=== PATIENT | female | born 1945 | race Caucasian/White ===

== ENCOUNTER → 2016-11-01 | Outpatient (CLI) | payer MEDICARE, OTHER ==
--- NOTE | 2016-11-01 12:44 | RAD ---
Indication injury. Axial noncontrast images of the head were obtained and are compared to an exam 05/26/2015. The calvarium shows no acute finding. Postoperative changes of a right craniotomy are noted. The visualized paranasal sinuses appear normal. Chronic right subdural hematoma is noted. Cystic lesion at the base of the right frontal lobe is noted also unchanged. Small encephalomalacic area in the left parietal lobe, were there was a previous parenchymal hemorrhage, is additionally noted. No acute parenchymal finding is seen. There has not, overall, been a significant change in the appearance of the head compared to the prior study. IMPRESSION: Chronic changes. No acute finding. No significant change PQRS Compliance Statement: One or more of the following individualized dose reduction techniques were utilized for this examination: 1. Automated exposure control 2. Adjustment of the mA and/or kV according to patient size 3. Use of iterative reconstruction technique
== END | disposition home or self-care (01) ==
LOC: CT 11:52
PROVIDERS: ATTEND Family Medicine
DX: I62.00 Nontraumatic subdural hemorrhage, unspecified (principal); M25.531 Pain in right wrist; R07.82 Intercostal pain; Z91.81 History of falling
CPT/HCPCS: 70450

== ENCOUNTER → 2017-02-15 | Outpatient (CLI) | payer MEDICARE, OTHER ==
--- NOTE | 2017-02-15 16:56 | RAD ---
Left lower extremity deep venous ultrasound 02/15/2017 Indication: [Left leg pain Comparison study: [None] Discussion: Sonographic evaluation of the deep veins of left lower extremity was performed. This includes grayscale imaging and color duplex imaging with spectral analysis. No evidence of deep venous thrombosis is seen. Interrogated veins are compressible and demonstrate augmentable blood flow and color Doppler imaging. Impression: No evidence of deep venous thrombosis involving left lower extremity
--- NOTE | 2017-02-15 16:58 | RAD ---
EXAM: Left knee, 3 views HISTORY: Left knee pain. COMPARISON: None. FINDINGS: No fractures are identified. Joint spaces are maintained. Alignment is normal. There is no joint effusion. Osteopenia is at least moderate. There is ossification or calcification in the region of the origin of the fibular collateral ligament. This may reflect a chronic injury. IMPRESSION: 1. No fracture or clear degenerative change. At least moderate osteopenia.
[2017-02-15 17:42] LABS: ALBUMIN 4.2 g/dL (3.4-5.0); ALBUMIN/GLOBULIN RATIO 1.1 (1.0-1.7); CALCIUM 9.4 mg/dL (8.5-10.1); CREATININE 0.8 mg/dL (0.6-1.0); GFR 71.1; POTASSIUM 3.7 mmol/L (3.5-5.1); TOTAL BILIRUBIN 1.3 mg/dL (0.2-1.0); TOTAL PROTEIN 7.9 g/dL (6.4-8.2)
== END | disposition home or self-care (01) ==
LOC: US 16:03
PROVIDERS: ATTEND Nurse Practitioner Family
DX: E03.9 Hypothyroidism, unspecified (principal); M85.862 Other specified disorders of bone density and structure, left lower leg; M79.662 Pain in left lower leg
CPT/HCPCS: 36415; 73562; 80053; 84443; 93971

== ENCOUNTER 2020-05-08 00:44 | Emergency (ER) | payer MEDICARE ==
[~2020-05-08] VITALS: Ht 162.6 cm; Wt 65.2 kg
--- NOTE | 2020-05-08 01:39 | PHYS DOC ---
Past History Past Medical History: Other Additional Past Medical Histor: Brain bleed Past Surgical History: Tubal ligation, Other Additional Past Surgical Histo: brain sx Alcohol Use: Occasionally Adult General Chief Complaint Chief Complaint: MECHANICAL FALL HPI HPI Patient is an otherwise healthy 74-year-old female who presents after falling in her kitchen while feeding her dogs. States this is about 2 hours ago, was feeding her dogs, tripped and fell on her right side. States she had immediate pain, 7 out of 10, sharp in nature. States that when anybody else at home so she crawled over to her cell phone to call 911. Denies head injury, syncope, neck pain, chest pain, shortness of breath, abdominal pain, nausea, vomiting. Denies any use of blood thinners. States she had not eaten since 8 PM. States she usually ambulates without issue. Denies any numbness/weakness/tingling. States she cannot move her right leg secondary to pain and discomfort but can still feel and wiggle her toes. Review of Systems Review of Systems Review of systems otherwise unremarkable except noted in HPI Allergies Allergies Allergies Coded Allergies Type Severity Reaction Last Updated Verified ezetimibe Allergy Intermediate Hives 05/08/20 Yes Physical Exam Physical Exam Constitutional: Well developed, well nourished, no acute distress, non-toxic appearance. [] HENT: Normocephalic, atraumatic, bilateral external ears normal, oropharynx moist, no oral exudates, nose normal. [] Eyes: PERRLA, EOMI, conjunctiva normal, no discharge. [] Neck: Normal range of motion, no tenderness, supple, no stridor. [] Cardiovascular:Heart rate regular rhythm, no murmur [] Lungs & Thorax: Bilateral breath sounds clear to auscultation [] Abdomen: Bowel sounds normal, soft, no tenderness, no masses, no pulsatile masses. [] Skin: Warm, dry, no erythema, no rash. [] Back: No tenderness, no CVA tenderness. [] Extremities: No tenderness, no cyanosis, no clubbing, ROM intact, no edema. [] Neurologic: Alert and oriented X 3, normal motor function, normal sensory function, no focal deficits noted. [] Psychologic: Affect normal, judgement normal, mood normal. [] Current Patient Data Vital Signs Vital Signs Date Time Temp Pulse Resp B/P (MAP) Pulse Ox O2 Delivery O2 Flow Rate FiO2 05/08/20 00:50 97.7 78 18 122/64 (83) 99 Room Air EKG EKG [] Radiology/Procedures Radiology/Procedures [] FINDINGS/ IMPRESSION: There is a mildly displaced intertrochanteric fracture of the right hip with valgus angulation. Regional soft tissue swelling is noted. Pelvic ring is intact. Left hip joint is preserved. Proximal femur is intact. Electronically signed by: Isabel Lopez MD (05/08/2020 2:33 AM) [facility] Heart Score Risk Factors: Risk Factors: DM, Current or recent (<one month) smoker, HTN, HLP, family history of CAD, obesity. Risk Scores: Risk Factors: DM, Current or recent (<one month) smoker, HTN, HLP, family history of CAD, obesity. Course & Med Decision Making Course & Med Decision Making Patient is a 74-year-old female who presents after a fall with right hip pain Vital signs not concerning. Physical exam noted above. Patient with a externally rotated and shortened right leg Patient given Zofran for nausea and morphine for pain. Imaging notable for right-sided intertrochanteric fracture. Discussed findings with patient and advised admission/transfer to [facility] for continued evaluation and treatment by orthopedic team. Patient grateful, verbalized understanding and agrees with plan of admission and transfer. [] Dragon Disclaimer Dragon Disclaimer This electronic medical record was generated, in whole or in part, using a voice recognition dictation system. Departure Departure: Impression: Primary Impression: Fall Additional Impression: Hip pain Disposition: 02 DC/TRF OTHER SHORT TERM HOS Condition: IMPROVED Referrals: MADDY SOSA MD (PCP) Problem Qualifiers LINDA FOWLER MD May 08, 2020 01:39
[2020-05-08] MEDS ORDERED: ONDANSETRON PF 4 MG/2 ML VIAL. IVP ONE (02:00)
[2020-05-08] MEDS ORDERED: MORPHINE SULFATE 4 MG/ML DISP.SYRIN. IV ONE ×2 (02:00→05:00)
[2020-05-08 02:01] LABS: BASO # 0.1 x10^3/uL (0.0-0.2); BASO % 1 % (0-3); EOS # 0.3 x10^3/uL (0.0-0.7); EOS % 5 % (0-3); HEMATOCRIT 46.2 % (36.0-47.0); HEMOGLOBIN 15.7 g/dL (12.0-15.5); LYMPH # 1.3 x10^3/uL (1.0-4.8); LYMPH % 25 % (24-48); MEAN CORPUSCULAR HEMOGLOBIN 34 pg (25-35); MEAN CORPUSCULAR HGB CONC 34 g/dL (31-37); MEAN CORPUSCULAR VOLUME 100 fL (79-100); MONO # 0.4 x10^3/uL (0.0-1.1); MONO % 8 % (0-9); NEUT # 3.1 x10^3uL (1.8-7.7); NEUT % 61 % (31-73); PLATELET COUNT 225 x10^3/uL (140-400); RED BLOOD COUNT 4.62 x10^6/uL (3.50-5.40); RED CELL DISTRIBUTION WIDTH 13.7 % (11.5-14.5); WHITE BLOOD COUNT 5.2 x10^3/uL (4.0-11.0)
[2020-05-08 02:09] LABS: CALCIUM 8.4 mg/dL (8.5-10.1); CREATININE 0.7 mg/dL (0.6-1.0); GFR 82.3
--- NOTE | 2020-05-08 02:36 | RAD ---
XR HIP (WITH OR WITHOUT PELVIS) 1 VIEW, XR FEMUR_RIGHT 05/08/2020 1:35 AM INDICATION: Trauma, fall. Bilateral hip and upper leg pain COMPARISON: None available. TECHNIQUE: AP view the pelvis and 2 dedicated views of each hip are provided. FINDINGS/ IMPRESSION: There is a mildly displaced intertrochanteric fracture of the right hip with valgus angulation. Regio nal soft tissue swelling is noted. Pelvic ring is intact. Left hip joint is preserved. Proximal femur is intact. Electronically signed by: Isabel Lopez MD (05/08/2020 2:33 AM) [facility]
[2020-05-08 02:50] LABS: POTASSIUM 3.8 mmol/L (3.5-5.1)
[2020-05-08] MEDS ORDERED: IV RINGERS SOLUTION,LACTATED 1,000 ML IV ONE (05:00)
[2020-05-08 05:14] VITALS: BP 107/66
== END 2020-05-08 05:40 | disposition short-term general hospital (02) ==
LOC: ER 00:44
DX: S72.141A Displaced intertrochanteric fracture of right femur, initial encounter for closed fracture (principal); M25.552 Pain in left hip; Z98.51 Tubal ligation status; Z98.890 Other specified postprocedural states; W01.0XXA Fall on same level from slipping, tripping and stumbling without subsequent striking against object, initial encounter; Y93.89 Activity, other specified; Y92.89 Other specified places as the place of occurrence of the external cause; Y99.8 Other external cause status
CPT/HCPCS: 36415; 73521; 73552; 80048; 85025; 96361; 96374; 96375; 96376; 99285; J2270; J2405; J7120